=== PATIENT | female | born 1995 | race African-American/Black ===

== ENCOUNTER 2019-07-06 00:07 | Emergency (ER) | payer BC ==
[~2019-07-06] VITALS: Ht 154.9 cm; Wt 54.4 kg
[2019-07-06 00:23] VITALS: BP 106/64
--- NOTE | 2019-07-06 00:27 | PHYS DOC ---
Adult General Chief Complaint Chief Complaint: UPPER EXTREMITY PAIN HPI HPI Patient is a 24 year old female who an employee at [employer] presenting to the ED today complaining of generalized left upper extremity pain that began 4 hours ago when at work, patient states she believes she could've lifted something the wrong way. Patient denies any numbness or tingling to the left upper extremity. She states the pain is worse on movement. She describes the pain as throbbing and intermittent. Review of Systems Review of Systems Constitutional: Denies fever or chills [] Musculoskeletal: Reports left upper extremity pain. Denies back pain Integument: Denies rash or skin lesions [] Neurologic: Denies headache, focal weakness or sensory changes [] All other systems were reviewed and found to be within normal limits, except as documented in this note. Physical Exam Physical Exam Constitutional: Well developed, well nourished, no acute distress, non-toxic appearance. [] Skin: Warm, dry, no erythema, no rash. [] Back: No tenderness, no CVA tenderness. [] Extremities: No tenderness, no cyanosis, no clubbing, ROM intact, no edema. [] Neurologic: Alert and oriented X 3, normal motor function, normal sensory function, no focal deficits noted. [] Psychologic: Affect normal, judgement normal, mood normal. [] EKG EKG [] Radiology/Procedures Radiology/Procedures [] Course & Med Decision Making Course & Med Decision Making Pertinent Labs and Imaging studies reviewed. (See chart for details) This is a 24-year-old female patient with pain to the left upper extremity that began 4 hours ago while working at [employer]. Patient's pain is musculoskeletal. Likely muscle strain. Discharged with instructions to use vats-kux-horysol remedies. Ice or heat recommended to the left upper extremity. Follow-up with the PCP in 1-2 weeks. Dragon Disclaimer Dragon Disclaimer This electronic medical record was generated, in whole or in part, using a voice recognition dictation system. Departure Departure Impression: Primary Impression: Muscle strain of left upper extremity Disposition: 01 HOME, SELF-CARE Condition: STABLE Referrals: NO PCP (PCP) follow up in 1-2 weeks Patient Instructions: Muscle Strain, [id number] Additional Instructions: You were evaluated in the emergency room with left upper extremity pain likely a muscle strain. Try to ice and elevate the extremity, you can also try heat to the left upper extremity. Take ezxu-loy-vnhlthk pain relievers specifically Tylenol or ibuprofen as needed for pain. Follow-up with your doctor in 1-2 weeks. Problem Qualifiers Primary Impression: Muscle strain of left upper extremity Encounter type: initial encounter Qualified Codes: S46.912A - Strain of unspecified muscle, fascia and tendon at shoulder and upper arm level, left arm, initial encounter ESTHER FREITAS APRN Jul 06, 2019 00:27
== END 2019-07-06 00:30 | disposition home or self-care (01) ==
LOC: ER 00:07
DX: S46.912A Strain of unspecified muscle, fascia and tendon at shoulder and upper arm level, left arm, initial encounter (principal); X50.0XXA Overexertion from strenuous movement or load, initial encounter; Y93.89 Activity, other specified; Y92.89 Other specified places as the place of occurrence of the external cause; Y99.8 Other external cause status
CPT/HCPCS: 99282

== ENCOUNTER 2019-07-28 23:47 | Emergency (ER) | payer BC ==
[~2019-07-28] VITALS: Ht 154.9 cm; Wt 54.4 kg
[2019-07-29 00:15] VITALS: BP 123/88
[2019-07-29] MEDS ORDERED: TRAM50TA PO (00:43)
--- NOTE | 2019-07-29 00:43 | PHYS DOC ---
Past Medical History Past Medical History: No Pertinent History (ESTHER FREITAS APRN) Past Surgical History: Tubal ligation (ESTHER FREITAS APRN) Alcohol Use: None Drug Use: None (ESTHER FREITAS APRN) Adult General Chief Complaint Chief Complaint: UPPER EXTREMITY PAIN HPI HPI Patient is a 24 year old female who presents to the ED today complaining of mild intermittent right forearm pain that began yesterday after she hit her right forearm on a wall at work. Patient states the pain is worse on touching the area. Denies anything specifically relieving the pain though she states she has tried [id number]-cfe-yroqzjg remedies with no relief. (ESTHER FREITAS APRN) Review of Systems Review of Systems Constitutional: Denies fever or chills [] Musculoskeletal: Reports right forearm pain Integument: Denies rash or skin lesions [] Neurologic: Denies headache, focal weakness or sensory changes [] All other systems were reviewed and found to be within normal limits, except as documented in this note. (ESTHER FREITAS APRN) Physical Exam Physical Exam Constitutional: Well developed, well nourished, no acute distress, non-toxic a ppearance. [] Skin: Warm, dry, no erythema, no rash. [] Back: No tenderness, no CVA tenderness. [] Extremities: Tenderness on palpation of the right lateral mid forearm, no cyanosis, no clubbing, ROM intact, no edema. +2 right radial pulse. Adequate radial medial and ulnar sensation to the right forearm. Neurologic: Alert and oriented X 3, normal motor function, normal sensory function, no focal deficits noted. [] Psychologic: Affect normal, judgement normal, mood normal. [] (ESTHER FREITAS APRN) Current Patient Data Vital Signs Vital Signs Date Time Temp Pulse Resp B/P (MAP) Pulse Ox O2 Delivery O2 Flow Rate FiO2 07/29/19 00:15 98.2 57 18 123/88 (100) 100 Room Air 98.2 (BARORWVENECIA GREEN DO) EKG EKG [] (ESTHER FREITAS APRN) Radiology/Procedures Radiology/Procedures [] (ESTHER FREITAS APRN) Course & Med Decision Making Course & Med Decision Making Pertinent Labs and Imaging studies reviewed. (See chart for details) This is a 24-year-old female patient presenting to the ED today with right forearm contusion after hitting her right forearm on a wall at work. Discharged to home. Ice elevation encouraged. Follow-up with PCP in 1-2 weeks. (ESTHER FREITAS APRN) Doon Disclaimer Dragon Disclaimer This electronic medical record was generated, in whole or in part, using a voice recognition dictation system. (ESTHER FREITAS APRN) Departure Departure Impression: Primary Impression: Contusion of right forearm Disposition: HOME, SELF-CARE Condition: STABLE Referrals: NO PCP (PCP) follow up with your doctor in 1-2 weeks Patient Instructions: Contusion, [id number] Additional Instructions: You have right forearm contusion. Try to ice and elevate the extremity. Take the pain medicine prescribed as needed for pain. Follow-up with your doctor in 1-2 weeks. Her Scripts Tramadol Hcl (TRAMADOL HCL) 50 Mg Tablet 50 MG PO Q6HRS PRN for PAIN, #30 TAB Prov: FORTINOESTHER CARDENAS 07/29/19 Attending Signature Attending Signature I have reviewed the PA/COMMERCIAL REPRESENTATIVE's note and plan of care. I was available for consultation as needed at all times during the patient's visit in the emergency department. I agree with the clinical impression, plan and disposition. (VENECIA BARROW DO) Problem Qualifiers Primary Impression: Contusion of right forearm Encounter type: initial encounter Qualified Codes: S50.11XA - Contusion of right forearm, initial encounter ESTHER FREITAS APRN Jul 29, 2019 00:43 VENECIA BARROW DO Jul 30, 2019 19:21
== END 2019-07-29 00:57 | disposition home or self-care (01) ==
LOC: ER 23:47
DX: S50.11XA Contusion of right forearm, initial encounter (principal); Z98.51 Tubal ligation status; W22.01XA Walked into wall, initial encounter; Y93.89 Activity, other specified; Y92.89 Other specified places as the place of occurrence of the external cause; Y99.0 Civilian activity done for income or pay
CPT/HCPCS: 99283